=== PATIENT | female | born 1965 | race Caucasian/White ===

== ENCOUNTER 2016-06-11 18:01 | Emergency (ER) | payer BC, OTHER ==
[~2016-06-11] VITALS: Ht 162.6 cm; Wt 71.5 kg
[~2016-06-11 18:01] MED LIST: CIPR-255 PO; CITA40TA12 PO; FEXO1TAB49 PO; FLUT0.15 NAE
[2016-06-11 18:30] VITALS: TEMP 36.8; Ht 162.6 cm; Wt 71.5 kg
[2016-06-11] MEDS ORDERED: SODIUM CHLORIDE 0.9% 1000ML 1,000 ML IV STA ×2 (19:11)
[2016-06-11] MEDS ORDERED: KETOROLAC TROMETHAMINE 30 MG/ML VIAL IV STA (19:11)
[2016-06-11] MEDS ORDERED: ONDANSETRON INJ 2 MG/ML 2 ML VIAL IV STA (19:11)
[2016-06-11] MEDS ORDERED: MoRPHine SULFATE 4 MG/ML 1 ML CARP\\VIAL IV STA (19:11)
[2016-06-11 19:26] LABS: BASO % 0.2 %; BASO ABS # 0.03 K/uL (0-0.2); COMPLETE YES; HEMATOCRIT 43.6 % (37-47); IG% 0.2 %; LYMPH % 15.9 %; LYMPH ABS # 2.11 K/uL (1.2-3.4); MEAN CELL VOLUME 94.8 fL (80-100); MEAN CORPUSCULAR HGB CONC 33.7 g/dl (32-36); MEAN PLATELET VOLUME 10.2 fL (7.4-10.4); NEUT % 74.7 %; PLATELET COUNT 338 K/uL (130-400); WHITE BLOOD COUNT 13.24 K/uL (4.8-10.8)
[2016-06-11 19:35] LABS: URINE APPEARANCE CLEAR (CLEAR); URINE BILIRUBIN NEG (NEG); URINE COLOR YELLOW; URINE NITRITE NEG (NEG); URINE PH 5.5 (4.5-7.5); URINE SPECIFIC GRAVITY 1.028 (1.000-1.030); UROBILINOGEN NEG (NEG)
[2016-06-11 19:37] LABS: MANUAL MICROSCOPIC REQUIRED? NO; REVIEW REQ? NO
[2016-06-11 19:44] LABS: BUN/CREATININE RATIO 17.7 (10-20); CALCIUM 8.5 mg/dl (8.5-10.1); CREATININE 0.88 mg/dl (0.60-1.20); POTASSIUM 4.2 mmol/L (3.5-5.1)
[2016-06-11 19:47] LABS: ALB/GLOB RATIO 1.1 (0.9-2)
--- NOTE | 2016-06-11 19:56 | DIAGNOSTIC IMAGING REPORT ---
CT SCAN OF THE ABDOMEN AND PELVIS WITHOUT CONTRAST CLINICAL HISTORY: Right flank pain COMPARISON STUDY: 12/10/2015 TECHNIQUE: CT scan of the abdomen and pelvis was performed from the lung bases to the proximal femurs. Images are reviewed in the axial, sagittal, and coronal planes. IV contrast was not administered for this examination. CT DOSE: 885.29 mGy.cm FINDINGS: Lower chest: The heart is normal in size and configuration, without pericardial effusion. The lung bases and pleural spaces are clear. Liver: There are stable right lobe hypodensities, likely are presenting cysts. Gallbladder: Unremarkable. Spleen: Normal in size and attenuation. Pancreas: Unremarkable. Adrenal glands: Unremarkable. Kidneys: There is a 3 mm upper pole right renal calculus. No left renal calculi are visualized. There is no hydronephrosis. No ureteral or bladder calculi are visualized. Bowel: There are mildly prominent fluid-filled upper abdominal small bowel loops. There are no transition zones indicate bowel obstruction. There is a small bowel feces sign which may indicate an element of stasis. There are no findings to indicate acute appendicitis. Evaluation the appendix is somewhat limited given the lack of intravenous and oral contrast. There is no acute diverticulitis. Peritoneum: There is a small amount of free pelvic fluid. No free air is visualized. Vasculature: The abdominal aorta is normal in course and caliber. Adenopathy: None. Pelvic viscera: There are bilateral ovarian cysts/follicles, similar to the prior study. Skeletal structures: No destructive osseous lesions are seen. IMPRESSION: 1. Right-sided nephrolithiasis. No ureteral or bladder calculi identified 2. No evidence of acute appendicitis. No evidence of acute diverticulitis 3. Small amount of free fluid in the pelvis, likely physiologic 4. Stable bilateral ovarian cysts/follicles 5. Mildly prominent fluid-filled left upper quadrant small bowel loops. There is no current evidence of a significant bowel obstruction. A mild enteritis cannot be excluded. Electronically signed by: Kieran Cavanaugh M.D. 06/11/2016 7:54 PM Dictated Date/Time: 06/11/2016 7:48 PM
--- NOTE | 2016-06-11 21:09 | EMERGENCY ROOM VISIT NOTE ---
History First contact with patient: 18:58 Chief Complaint: FLANK PAIN Stated Complaint: RIGHT SIDE PAIN History of Present Illness Patient is a 51-year-old white female with past medical history significant for kidney stones who presents to the emergency department for evaluation of right- sided flank pain over the last 2-3 days. She has pain in her right mid back that wraps around to the right lower quadrant into the right groin. It has been fairly constant, and has been slightly worsened over the last 2-3 days. She notes urinary frequency, but states that she is urinating smaller amounts. She denies dysuria or hematuria. She is slightly nauseous but has not vomited. She is had chills and felt warm but has not checked her temperature with a thermometer. She has known right-sided kidney stones or chronic CAT scan this summer when she was being evaluated for appendicitis. She probably did have follow-up with urology. She is status post tubal ligation and right groin hernia repair. She does not menstruate after an endometrial ablation. She denies any gynecologic history. She rates her pain a 6/10 presently. Review of Systems Review of systems as per HPI. All other systems reviewed were negative. 10 systems reviewed. Past Medical/Surgical History Medical Problems: (1) Abdominal pain (2) Allergic rhinitis (3) Anxiety (4) Asthma (5) Prescription refill (6) Right kidney stone (7) RLQ abdominal pain (8) UTI (urinary tract infection) Surgical Problems: (1) History of endometrial ablation (2) History of hernia repair (3) Tubal Ligation Status Electronic medical records are reviewed and summarized as above/below. See Problem List. Family History FH: diabetes mellitus FH: heart disease FH: hypertension FH: kidney disease Social History Smoking Status: Current Every Day Smoker Alcohol Use: none Drug Use: none Marital Status: single Housing Status: lives with family Occupation Status: employed Current/Historical Medications Scheduled Ciprofloxacin Hcl (Cipro), 500 MG PO BID Citalopram Hydrobromide (Celexa), 40 MG PO DAILY Scheduled PRN Fexofenadine Hcl (Aniyah Allergy), 180 MG PO DAILY PRN for Allergy Symptoms Fluticasone Propionate (Nasal) (Flonase Allergy Relief), 2 SPRAYS CE DAILY PRN for Nasal Congestion Allergies Coded Allergies: Homatropine (Unverified Adverse Reaction, Unknown, UPSET STOMACH, 12/10/15) Hydrocodone (Unverified Adverse Reaction, Unknown, UPSET STOMACH, 12/10/15) Uncoded Allergies: ANTICHOLINERGIC (Allergy, Unknown, UPSET STOMACH, 12/07/15) Physical Exam Vital Signs Date Time Temp Pulse Resp B/P Pulse Ox O2 Delivery O2 Flow Rate FiO2 06/11/16 21:38 67 20 118/59 100 06/11/16 21:01 56 20 119/70 98 Room Air 06/11/16 19:15 61 20 125/71 98 Room Air 06/11/16 18:30 36.8 65 21 117/82 98 Room Air Physical Exam CONSTITUTIONAL: Patient is an uncomfortable 51-year-old white female who is awake and alert and in no acute distress. EYES: Pupils equal, round, reactive to light and accommodation. EOMs intact without nystagmus. Sclera are anicteric. ENT: Tympanic membranes intact, with normal landmarks. External canals are clear. Oral and nasopharynx are clear. Mucous membranes are moist, no lesions , tongue and gums appear normal. NECK: No bruits auscultated. Supple without lymphadenopathy. No thyromegaly. No meningeal signs. Full active range of motion without discomfort. CARDIOVASCULAR: Regular rate and rhythm, with normal S1 and S2, no murmur or gallop or rub is heard. No carotid bruits auscultated. No JVD. Peripheral pulses easily palpable. RESPIRATORY: Breath sounds equal and clear to auscultation without wheezes, rales, or rhonchi heard. Full and equal chest expansion without accessory muscle use or retractions. ABDOMEN: Bowel sounds are present. Abdomen is soft, nondistended, nontender to palpation. She has a well-healed right inguinal surgical incision. Positive right CVA tenderness. INTEGUMENTARY: No lesions or rash, normal skin turgor. LYMPH: No lymphadenopathy. Medical Decision & Procedures ER Provider Diagnostic Interpretation: CT SCAN OF THE ABDOMEN AND PELVIS WITHOUT CONTRAST CLINICAL HISTORY: Right flank pain COMPARISON STUDY: 12/10/2015 TECHNIQUE: CT scan of the abdomen and pelvis was performed from the lung bases to the proximal femurs. Images are reviewed in the axial, sagittal, and coronal planes. IV contrast was not administered for this examination. CT DOSE: 885.29 mGy.cm FINDINGS: Lower chest: The heart is normal in size and configuration, without pericardial effusion. The lung bases and pleural spaces are clear. Liver: There are stable right lobe hypodensities, likely are presenting cysts. Gallbladder: Unremarkable. Spleen: Normal in size and attenuation. Pancreas: Unremarkable. Adrenal glands: Unremarkable. Kidneys: There is a 3 mm upper pole right renal calculus. No left renal calculi are visualized. There is no hydronephrosis. No ureteral or bladder calculi are visualized. Bowel: There are mildly prominent fluid-filled upper abdominal small bowel loops. There are no transition zones indicate bowel obstruction. There is a small bowel feces sign which may indicate an element of stasis. There are no findings to indicate acute appendicitis. Evaluation the appendix is somewhat limited given the lack of intravenous and oral contrast. There is no acute diverticulitis. Peritoneum: There is a small amount of free pelvic fluid. No free air is visualized. Vasculature: The abdominal aorta is normal in course and caliber. Adenopathy: None. Pelvic viscera: There are bilateral ovarian cysts/follicles, similar to the prior study. Skeletal structures: No destructive osseous lesions are seen. IMPRESSION: 1. Right-sided nephrolithiasis. No ureteral or bladder calculi identified 2. No evidence of acute appendicitis. No evidence of acute diverticulitis 3. Small amount of free fluid in the pelvis, likely physiologic 4. Stable bilateral ovarian cysts/follicles 5. Mildly prominent fluid-filled left upper quadrant small bowel loops. There is no current evidence of a significant bowel obstruction. A mild enteritis cannot be excluded. Laboratory Results 06/11/16 19:15 Red Blood Count 4.60, Mean Corpuscular Volume 94.8, Mean Corpuscular Hemoglobin 32.0, Mean Corpuscular Hemoglobin Concent 33.7, Mean Platelet Volume 10.2, Neutrophils (%) (Auto) 74.7, Lymphocytes (%) (Auto) 15.9, Monocytes (%) (Auto) 8.0, Eosinophils (%) (Auto) 1.0, Basophils (%) (Auto) 0.2, Neutrophils # (Auto) 9.88, Lymphocytes # (Auto) 2.11, Monocytes # (Auto) 1.06, Eosinophils # (Auto) 0.13, Basophils # (Auto) 0.03 06/11/16 19:15 Test 06/11/16 19:15 White Blood Count 13.24 K/uL (4.8-10.8) Red Blood Count 4.60 M/uL (4.2-5.4) Hemoglobin 14.7 g/dL (12.0-16.0) Hematocrit 43.6 % (37-47) Mean Corpuscular Volume 94.8 fL (80-100) Mean Corpuscular Hemoglobin 32.0 pg (25-34) Mean Corpuscular Hemoglobin Concent 33.7 g/dl (32-36) Platelet Count 338 K/uL (130-400) Mean Platelet Volume 10.2 fL (7.4-10.4) Neutrophils (%) (Auto) 74.7 % Lymphocytes (%) (Auto) 15.9 % Monocytes (%) (Auto) 8.0 % Eosinophils (%) (Auto) 1.0 % Basophils (%) (Auto) 0.2 % Neutrophils # (Auto) 9.88 K/uL (1.4-6.5) Lymphocytes # (Auto) 2.11 K/uL (1.2-3.4) Monocytes # (Auto) 1.06 K/uL (0.11-0.59) Eosinophils # (Auto) 0.13 K/uL (0-0.5) Basophils # (Auto) 0.03 K/uL (0-0.2) RDW Standard Deviation 43.3 fL (36.4-46.3) RDW Coefficient of Variation 12.5 % (11.5-14.5) Immature Granulocyte % (Auto) 0.2 % Immature Granulocyte # (Auto) 0.03 K/uL (0.00-0.02) Urine Color YELLOW Urine Appearance CLEAR (CLEAR) Urine pH 5.5 (4.5-7.5) Urine Specific [place]ushman 1.028 (1.000-1.030) Urine Protein NEG (NEG) Urine Glucose (UA) NEG (NEG) Urine Ketones NEG (NEG) Urine Occult Blood NEG (NEG) Urine Nitrite NEG (NEG) Urine Bilirubin NEG (NEG) Urine Urobilinogen NEG (NEG) Urine Leukocyte Esterase NEG (NEG) Anion Gap 8.0 mmol/L (3-11) Est Creatinine Clear Calc Drug Dose 75.0 ml/min Estimated GFR () 89.4 Estimated GFR (Non- 77.2 BUN/Creatinine Ratio 17.7 (10-20) Calcium Level 8.5 mg/dl (8.5-10.1) Total Bilirubin 0.1 mg/dl (0.2-1) Aspartate Amino Transf (AST/SGOT) 11 U/L (15-37) Alanine Aminotransferase (ALT/SGPT) 21 U/L (12-78) Alkaline Phosphatase 68 U/L (45-117) Total Protein 7.0 gm/dl (6.4-8.2) Albumin 3.6 gm/dl (3.4-5.0) Globulin 3.4 gm/dl (2.5-4.0) Albumin/Globulin Ratio 1.1 (0.9-2) Lipase 149 U/L (73-393) Medications Administered Medications (Trade) Dose Ordered Sig/Gustavo Route Start Time Stop Time Status Last Admin Dose Admin Sodium Chloride 1,000 ml @ 999 mls/hr Q1H1M STAT IV 06/11/16 19:11 06/11/16 20:11 DC 06/11/16 19:24 999 MLS/HR Sodium Chloride (Nss 1000ml) 1,000 ml @ 250 mls/hr Q4H STAT IV 06/11/16 19:11 06/11/16 22:13 DC 06/11/16 19:24 250 MLS/HR Ketorolac Tromethamine (Toradol Inj) 30 mg NOW STAT IV 06/11/16 19:11 06/11/16 19:14 DC 06/11/16 19:24 30 MG Ondansetron HCl (Zofran Inj) 4 mg NOW STAT IV 06/11/16 19:11 06/11/16 19:14 DC 06/11/16 19:25 4 MG Morphine Sulfate (MoRPHine SULFATE INJ) 4 mg NOW STAT IV 06/11/16 19:11 06/11/16 19:14 DC 06/11/16 19:25 4 MG Ondansetron HCl (ZOFRAN ODT 4MG Home Pack) 1 homepack UD ONCE PO 06/11/16 21:15 06/11/16 21:16 DC 06/11/16 21:31 1 HOMEPACK Oxycodone/ Acetaminophen (Percocet 5/ 325MG Home Pack) 1 homepack UD ONCE PO 06/11/16 21:15 06/11/16 21:16 DC 06/11/16 21:31 1 HOMEPACK ED Course Patient was seen and evaluated as above. Old records are reviewed. She has a CAT scan from last summer which showed a 3 mm intrarenal right calculus. IV access was obtained. She was hydrated with normal saline solutions, and medicated with Toradol 30 mg, Zofran 4 mg and morphine 4 mg IV. CBC, CMP, lipase, urinalysis were all performed. Given her known history of nephrolithiasis and right flank pain, CT scan of the abdomen and pelvis was ordered to evaluate her pain. Patient did have a slightly elevated white count at 13,200, this is nonspecific in nature. Electrolytes and renal functions are normal. Liver functions are not elevated. Lipase is not indicative of acute pancreatitis. Urinalysis completely clear without signs of infection. CT scan again demonstrated a stable 3 mm upper pole right renal calculus. No evidence for hydronephrosis or ureteral or bladder calculi. She did also have some mildly prominent fluid-filled upper abdominal small bowel loops. No transition zone to indicate bowel obstruction there is no evidence for acute appendicitis. No acute diverticulitis. The patient and her were made aware of the results of her CT scan. She has nephrolithiasis, but no evidence for ureteral calculus or hydronephrosis she has had some nausea and loose stools, and has some bowel findings consistent with a possible enteritis. Differential diagnoses entertained included UTI, pyelonephritis, renal colic, appendicitis, biliary colic, acute cholecystitis, ascending cholangitis, pancreatitis, GERD, gastritis, musculoskeletal, among others. The patient reported good relief of her pain with the IV medications. Supportive care measures were discussed. The patient rated her pain a 1/10 at discharge. Medical Decision See ED Course. Impression Primary Impression: Right flank pain Departure Information Referrals Garfield Silverman M.D. (PCP) Patient Instructions My [facility] Additional Instructions DO NOT drive, drink alcohol, operate machinery, or perform dangerous activities today. You were given medications in the ER that can affect your ability to safely function or operate a vehicle. Percocet 5/325 mg: Take 1-2 pills every four hours as needed for breakthrough pain. Avoid alcohol, operating machinery or dangerous equipment, working on ladders or roofs, DRIVING, making important decisions, or situations where being under the influence may be dangerous. It is recommended to use an over- the-counter stool softener such as Colace, 100mg twice daily while taking this medication to avoid constipation. Ibuprofen(Motrin, Advil) may be used for fever or pain. Use 600mg every six hours as needed. Take with food. Avoid using more than 2400mg in a 24 hour period. Do not use 2400mg per day for more than three consecutive days without physician direction. Prolonged inappropriate use can lead to stomach upset or ulcers. This is available over the counter and typically comes in 200mg tablets. (AND/OR) Acetaminophen(Tylenol) may be used for fever or pain. Use 1000mg every eight hours as needed. Avoid using more than 3000mg in a 24 hour period. This is available over the counter. Zofran(odansetron) tablets 4mg: Take one and allow it to dissolve in your mouth every four hours as needed for nausea or vomiting. Read all the package inserts or medication information paperwork provided. If you have any questions or concerns call your primary provider, pharmacist or the ER for assistance. Rest and drink plenty of fluids as tolerated. Slow sips of water or sports drinks are recommended instead of large amounts all at once. Continue current medications. Once your stomach is settled start with a clear liquid diet (jello, soup broth, etc.) and then advance as tolerated. You should avoid full, heavy meals for about 24 hrs from the time your symptoms resolved. Return to the ER immediately for worsening or persistent abdominal pain, vomiting, fevers, chest pains, difficulty breathing, black or bloody stools, worsening of your condition, or as needed. Follow up with your primary physician in 1-2 days for a recheck of your current condition.
[2016-06-11] MEDS ORDERED: PERCOCET HOME PACK PO ONE (21:15)
[2016-06-11] MEDS ORDERED: ONDANSETRON HOME PACK 4MG OD TAB PO ONE (21:15)
[2016-06-11 21:38] VITALS: BP 118/59; PULSE 67; O2SAT 100
== END 2016-06-11 21:39 | disposition home or self-care (01) ==
LOC: C.EDB 18:02 → C.EDC 21:39
DX: R10.30 Lower abdominal pain, unspecified (principal); Z98.51 Tubal ligation status; N20.0 Calculus of kidney; F41.9 Anxiety disorder, unspecified; J45.909 Unspecified asthma, uncomplicated; Z87.440 Personal history of urinary (tract) infections; Z83.3 Family history of diabetes mellitus; Z82.49 Family history of ischemic heart disease and other diseases of the circulatory system; F17.210 Nicotine dependence, cigarettes, uncomplicated; Z79.899 Other long term (current) drug therapy

== ENCOUNTER 2016-07-19 18:29 | Emergency (ER) | payer OTHER ==
[~2016-07-19] VITALS: Ht 162.6 cm; Wt 72.9 kg
[2016-07-19 18:33] VITALS: TEMP 36.9; Ht 162.6 cm; Wt 72.9 kg
[2016-07-19] MEDS ORDERED: ONDANSETRON INJ 2 MG/ML 2 ML VIAL IV STA (18:50)
[2016-07-19] MEDS ORDERED: SODIUM CHLORIDE 0.9% 1000ML 1,000 ML IV STA (18:50)
[2016-07-19] MEDS ORDERED: KETOROLAC TROMETHAMINE 30 MG/ML VIAL IV STA (19:16)
[2016-07-19 19:22] LABS: BASO % 0.2 %; BASO ABS # 0.02 K/uL (0-0.2); COMPLETE YES; EOS % 1.6 %; HEMATOCRIT 39.6 % (37-47); IG% 0.3 %; LYMPH % 26.3 %; MEAN CELL VOLUME 93.2 fL (80-100); MEAN CORPUSCULAR HEMOGLOBIN 31.5 pg (25-34); MEAN CORPUSCULAR HGB CONC 33.8 g/dl (32-36); MEAN PLATELET VOLUME 9.5 fL (7.4-10.4); MONO % 7.9 %; NEUT % 63.7 %; PLATELET COUNT 390 K/uL (130-400); RED BLOOD COUNT 4.25 M/uL (4.2-5.4); WHITE BLOOD COUNT 10.64 K/uL (4.8-10.8)
[2016-07-19 19:29] LABS: URINE APPEARANCE CLOUDY (CLEAR); URINE BILIRUBIN NEG (NEG); URINE COLOR YELLOW; URINE EPITHELIAL CELL AUTO >30 /lpf (0-5); URINE NITRITE NEG (NEG); URINE SPECIFIC GRAVITY 1.022 (1.000-1.030); UROBILINOGEN NEG (NEG)
[2016-07-19 19:30] LABS: MANUAL MICROSCOPIC REQUIRED? NO; REVIEW REQ? YES
[2016-07-19 19:52] LABS: ALKALINE PHOSPHATASE 69 U/L (45-117); ALT/SGPT 23 U/L (12-78); BLOOD UREA NITROGEN 13 mg/dl (7-18); BUN/CREATININE RATIO 15.9 (10-20); CALCIUM 8.3 mg/dl (8.5-10.1); CARBON DIOXIDE 28 mmol/L (21-32); CHLORIDE 104 mmol/L (98-107); CREATININE 0.81 mg/dl (0.60-1.20); GLUCOSE 63 mg/dl (70-99); SODIUM 141 mmol/L (136-145)
--- NOTE | 2016-07-19 19:55 | DIAGNOSTIC IMAGING REPORT ---
ABDOMEN 2VIEW W/PA CHEST RTN CLINICAL HISTORY: Right-sided abdominal pain. Nausea. Bloating. COMPARISON STUDY: CT scan performed June 11, 2016 FINDINGS: Erect chest reveals no free air. There is no focal pulmonary consolidation. Erect and supine views the abdomen reveal no abnormally dilated loops of large or small bowel. There are no transition zones indicate bowel obstruction. There is scattered stool throughout the colon. There is an equivocal 2 mm upper pole right renal calculus. IMPRESSION: 1. No evidence of bowel obstruction. No evidence of free air 2. Equivocal 2 mm upper pole right renal calculus Electronically signed by: Kieran Cavanaugh M.D. 07/19/2016 7:54 PM Dictated Date/Time: 07/19/2016 7:52 PM
[2016-07-19 20:15] VITALS: BP 114/65; PULSE 67; O2SAT 99
[2016-07-19] MEDS ORDERED: PHENERGAN 25MG HOMEPACK PO ONE (20:15)
--- NOTE | 2016-07-19 20:24 | EMERGENCY ROOM VISIT NOTE ---
History Report prepared by Cody: Marbella Jones Under the Supervision of: Dr. Juan Carlos Jo M.D. First contact with patient: 18:37 Chief Complaint: FLANK PAIN Stated Complaint: RIGHT FLANK PAIN, NAUSEA History of Present Illness The patient is a 51 year old female who presents to the Emergency Room with complaints of worsening right sided flank pain for the past 18 months. She rates her pain as a 6/10 and describes it as "burning" in nature. Eating seems to worsen her discomfort, but the pain is constant whether she is eating or not. She has tried watching what she eats, but nothing seems to offer improvement. She has undergone HIDA scans in [place] which were normal and CT scans here locally. She still has her appendix and gallbladder. Her pain has worsened in the last 1 week, prompting her visit to the ED this evening. She admits to recent mild loose diarrhea. Her last bowel movement was earlier today. She also complains of nausea today, but states she has not vomited. She denies any urinary symptoms. She denies any rectal bleeding or black stools. The patient has never seen a [employer] before. Source of History: patient Onset: 18 months [employer] Position: back (right sided flank) Symptom Intensity: 6/10 Quality: burning Timing: worsening Modifying Factors (Worsening): eating Associated Symptoms: + diarrhea, + nausea, No urinary symptoms, No vomiting Review of Systems See HPI for pertinent positives & negatives. A total of 10 systems reviewed and were otherwise negative. Past Medical & Surgical Medical Problems: (1) Abdominal pain (2) Allergic rhinitis (3) Anxiety (4) Asthma (5) Prescription refill (6) Right kidney stone (7) RLQ abdominal pain (8) UTI (urinary tract infection) Surgical Problems: (1) History of endometrial ablation (2) History of hernia repair (3) Tubal Ligation Status Family History FH: diabetes mellitus FH: heart disease FH: hypertension FH: kidney disease Social History Smoking Status: Current Every Day Smoker Alcohol Use: none Drug Use: none Marital Status: Housing Status: lives with family Occupation Status: employed Current/Historical Medications Scheduled Citalopram Hydrobromide (Celexa), 40 MG PO DAILY Scheduled PRN Fexofenadine Hcl (Aniyah Allergy), 180 MG PO DAILY PRN for Allergy Symptoms Fluticasone Propionate (Nasal) (Flonase Allergy Relief), 2 SPRAYS CE DAILY PRN for Nasal Congestion Allergies Coded Allergies: Homatropine (Verified Adverse Reaction, Unknown, UPSET STOMACH, 07/19/16) Hydrocodone (Verified Adverse Reaction, Unknown, UPSET STOMACH, 07/19/16) Uncoded Allergies: ANTICHOLINERGIC (Allergy, Unknown, UPSET STOMACH, 12/07/15) Physical Exam Vital Signs Date Time Temp Pulse Resp B/P Pulse Ox O2 Delivery O2 Flow Rate FiO2 07/19/16 20:15 67 18 114/65 99 07/19/16 18:33 36.9 83 18 116/71 100 Room Air Physical Exam Constitutional: Vital signs reviewed. Eyes: Pupils are equal round reactive to light. Conjunctiva are noninjected. ENT: Pharynx is clear without erythema or exudate. Mucous membranes are moist. Neck supple without meningeal signs. Respiratory: Clear to auscultation bilaterally. Breath sounds are equal bilaterally. Cardiovascular: Regular rate and rhythm. No rubs or gallops. GI: Soft, nondistended, right upper mid abdominal tenderness, no guarding. Bowel sounds are present. Musculoskeletal: No peripheral edema. No lower extremity tenderness. No CVA tenderness. Integumentary: No cyanosis. Neurological: The patient is awake and alert. No focal deficits. Psychiatric: Normal affect. Medical Decision & Procedures ER Provider Diagnostic Interpretation: This X-Ray was reviewed and interpreted by myself and the radiologist. ABDOMEN 2VIEW W/PA CHEST RTN CLINICAL HISTORY: Right-sided abdominal pain. Nausea. Bloating. COMPARISON STUDY: CT scan performed June 11, 2016 FINDINGS: Erect chest reveals no free air. There is no focal pulmonary consolidation. Erect and supine views the abdomen reveal no abnormally dilated loops of large or small bowel. There are no transition zones indicate bowel obstruction. There is scattered stool throughout the colon. There is an equivocal 2 mm upper pole right renal calculus. IMPRESSION: 1. No evidence of bowel obstruction. No evidence of free air 2. Equivocal 2 mm upper pole right renal calculus Electronically signed by: Kieran Cavanaugh M.D. 07/19/2016 7:54 PM Laboratory Results 07/19/16 19:00 Red Blood Count 4.25, Mean Corpuscular Volume 93.2, Mean Corpuscular Hemoglobin 31.5, Mean Corpuscular Hemoglobin Concent 33.8, Mean Platelet Volume 9.5, Neutrophils (%) (Auto) 63.7, Lymphocytes (%) (Auto) 26.3, Monocytes (%) (Auto) 7.9, Eosinophils (%) (Auto) 1.6, Basophils (%) (Auto) 0.2, Neutrophils # (Auto) 6.78, Lymphocytes # (Auto) 2.80, Monocytes # (Auto) 0.84, Eosinophils # (Auto) 0.17, Basophils # (Auto) 0.02 07/19/16 19:00 Test 07/19/16 00:00 07/19/16 19:00 Urine Color YELLOW Urine Appearance CLOUDY (CLEAR) Urine pH 5.0 (4.5-7.5) Urine Specific Lutz 1.022 (1.000-1.030) Urine Protein NEG (NEG) Urine Glucose (UA) NEG (NEG) Urine Ketones NEG (NEG) Urine Occult Blood NEG (NEG) Urine Nitrite NEG (NEG) Urine Bilirubin NEG (NEG) Urine Urobilinogen NEG (NEG) Urine Leukocyte Esterase NEG (NEG) Urine WBC (Auto) 1-5 /hpf (0-5) Urine RBC (Auto) 0-4 /hpf (0-4) Urine Hyaline Casts (Auto) 1-5 /lpf (0-5) Urine Epithelial Cells (Auto) >30 /lpf (0-5) Urine Bacteria (Auto) NEG (NEG) Urine Crystals CALCIUM OXALATE (NONE Urine Test NEG (NEG) White Blood Count 10.64 K/uL (4.8-10.8) Red Blood Count 4.25 M/uL (4.2-5.4) Hemoglobin 13.4 g/dL (12.0-16.0) Hematocrit 39.6 % (37-47) Mean Corpuscular Volume 93.2 fL (80-100) Mean Corpuscular Hemoglobin 31.5 pg (25-34) Mean Corpuscular Hemoglobin Concent 33.8 g/dl (32-36) Platelet Count 390 K/uL (130-400) Mean Platelet Volume 9.5 fL (7.4-10.4) Neutrophils (%) (Auto) 63.7 % Lymphocytes (%) (Auto) 26.3 % Monocytes (%) (Auto) 7.9 % Eosinophils (%) (Auto) 1.6 % Basophils (%) (Auto) 0.2 % Neutrophils # (Auto) 6.78 K/uL (1.4-6.5) Lymphocytes # (Auto) 2.80 K/uL (1.2-3.4) Monocytes # (Auto) 0.84 K/uL (0.11-0.59) Eosinophils # (Auto) 0.17 K/uL (0-0.5) Basophils # (Auto) 0.02 K/uL (0-0.2) RDW Standard Deviation 42.7 fL (36.4-46.3) RDW Coefficient of Variation 12.6 % (11.5-14.5) Immature Granulocyte % (Auto) 0.3 % Immature Granulocyte # (Auto) 0.03 K/uL (0.00-0.02) Anion Gap 9.0 mmol/L (3-11) Est Creatinine Clear Calc Drug Dose 82.2 ml/min Estimated GFR () 98.8 Estimated GFR (Non- 85.3 BUN/Creatinine Ratio 15.9 (10-20) Calcium Level 8.3 mg/dl (8.5-10.1) Total Bilirubin 0.2 mg/dl (0.2-1) Direct Bilirubin mg/dl (0-0.2) Aspartate Amino Transf (AST/SGOT) U/L (15-37) Alanine Aminotransferase (ALT/SGPT) 23 U/L (12-78) Alkaline Phosphatase 69 U/L (45-117) Total Protein 6.1 gm/dl (6.4-8.2) Albumin 3.0 gm/dl (3.4-5.0) Lipase 110 U/L (73-393) Laboratory results as reviewed by me. Medications Administered Medications (Trade) Dose Ordered Sig/Gustavo Route Start Time Stop Time Status Last Admin Dose Admin Ondansetron HCl 4 mg 4 mg NOW STAT IV 07/19/16 18:50 07/19/16 18:53 DC 07/19/16 19:19 4 MG Sodium Chloride (Nss 1000ml) 1,000 ml @ 999 mls/hr Q1H1M STAT IV 07/19/16 18:50 07/19/16 19:50 DC 07/19/16 19:20 999 MLS/HR Ketorolac Tromethamine (Toradol Inj) 10 mg NOW STAT IV 07/19/16 19:16 07/19/16 19:17 DC 07/19/16 19:24 10 MG Promethazine HCl (Phenergan 25MG Home Pack) 1 homepack UD ONCE PO 07/19/16 20:15 07/19/16 20:16 DC 07/19/16 20:15 1 HOMEPACK ED Course 184: The patient was evaluated in room B2. A complete history and physical exam was performed. 1849: NSS 1000 ml @ 999 mls/hr IV, Zofran 4 mg IV. 1915: Toradol 10 mg IV. 1956: I reevaluated the patient. I discussed her test results. She will follow up with Gastroenterology. She declined a re-stick for blood work. I discussed her discharge instructions and she verbalized complete understanding and agreement. Medical Decision This is a 51-year-old female presents with ongoing abdominal pain for the past 18 months. Differential diagnosis includes irritable bowel syndrome, pancreatitis, enteritis, food intolerance, cholelithiasis, kidney stone. I did perform a limited focused review of portions of the patient's old chart on the electronic medical record. The patient was here on June 11, 2016 for right sided flank pain. She had a CT of abdomen/pelvis, which showed a right sided kidney stone without any ureteral stones. There was no sign of appendicitis seen. Her urine did not show any blood and her blood work was unremarkable except for a WBC of 13. She was treated with Toradol and Morphine. I did evaluate the patient as noted above. The patient is presenting with right -sided abdominal pain. It has been going on for 18 months. She has had multiple studies for this pain including HIDA scans which were all negative. She had multiple CT scans, the most recent of which was last month. That CAT scan showed nephrolithiasis but no acute process. Her gallbladder was noted as unremarkable. She is presenting with the same pain she has had for 18 months. She has felt more over the past week. IV access was established. I did order and personally review the patient's urinalysis as described above. She has calcium oxalate crystals but no signs of infection. I did order and review the patient's blood work as noted in the electronic medical record. Her white blood cell count is 10. LFTs are unremarkable. She did have some hemolysis but she did not want to have repeat labs drawn. I did feel this was fine. I did order an x-ray of the abdomen and chest I did review the images myself as well as the radiology report as described above. There is no evidence of obstruction. I did treat the patient with Toradol, Zofran and normal saline IV. I did discuss the test results with the patient in detail. She was advised follow with gastroenterology. She was discharged in good condition and given return instructions as outlined below. Impression Primary Impression: Right sided abdominal pain Scribe Attestation The scribe's documentation has been prepared under my direct and personally reviewed by me in its entirety. I confirm that the note above accurately reflects all work, treatment, procedures, and medical decision making performed by me. Departure Information Dispostion Home / Self-Care Referrals Garfield Silverman M.D. (PCP) Patient Instructions ED Abd Pain Unkn Cause Fem, My [facility] Additional Instructions You have been examined and treated today on an emergency basis only. This is not a substitute for, or an effort to provide, complete comprehensive medical care. It is impossible to recognize and treat all injuries or illnesses in a single emergency department visit. It is therefore important that you follow up closely with your physician and Dr. Estes of gastroenterology. Call as soon as possible for an appointment. Return for worsening symptoms or if you develop fever, vomiting, black or bloody stools or any other concerning symptoms.
== END 2016-07-19 20:16 | disposition home or self-care (01) ==
LOC: C.EDB 18:31
DX: R10.9 Unspecified abdominal pain (principal); J45.909 Unspecified asthma, uncomplicated; F17.200 Nicotine dependence, unspecified, uncomplicated; Z87.440 Personal history of urinary (tract) infections; Z98.51 Tubal ligation status; Z98.890 Other specified postprocedural states; Z83.3 Family history of diabetes mellitus; Z82.49 Family history of ischemic heart disease and other diseases of the circulatory system

== ENCOUNTER 2017-04-01 17:49 | Emergency (ER) | payer OTHER ==
[~2017-04-01] VITALS: Ht 162.6 cm; Wt 75.5 kg
[~2017-04-01 17:49] MED LIST changes: -CIPR-255 PO
[2017-04-01 17:58] VITALS: TEMP 36.8; Ht 162.6 cm; Wt 75.5 kg
[2017-04-01] MEDS ORDERED: KETOROLAC TROMETHAMINE 30 MG/ML VIAL IV STA (18:18)
[2017-04-01] MEDS ORDERED: ONDANSETRON INJ 2 MG/ML 2 ML VIAL IV STA (18:18)
[2017-04-01] MEDS ORDERED: SODIUM CHLORIDE 0.9% 1000ML 1,000 ML IV ONE (18:30)
[2017-04-01] MEDS ORDERED: AMPH20TA2 PO (18:34)
[2017-04-01] MEDS ORDERED: CHOL1000 PO (18:34)
[2017-04-01] MEDS ORDERED: IBUP-103 PO (18:34)
[2017-04-01 19:01] LABS: URINE APPEARANCE CLOUDY (CLEAR); URINE BILIRUBIN NEG (NEG); URINE COLOR YELLOW; URINE EPITHELIAL CELL AUTO >30 /lpf (0-5); URINE NITRITE NEG (NEG); URINE SPECIFIC GRAVITY 1.027 (1.000-1.030); UROBILINOGEN NEG (NEG)
[2017-04-01 19:06] LABS: MANUAL MICROSCOPIC REQUIRED? NO; REVIEW REQ? YES
[2017-04-01 19:10] LABS: BASO % 0.3 %; BASO ABS # 0.03 K/uL (0-0.2); COMPLETE YES; IG% 0.3 %; LYMPH ABS # 2.87 K/uL (1.2-3.4); MEAN CELL VOLUME 95.7 fL (80-100); MEAN CORPUSCULAR HEMOGLOBIN 31.7 pg (25-34); MEAN CORPUSCULAR HGB CONC 33.1 g/dl (32-36); MEAN PLATELET VOLUME 9.8 fL (7.4-10.4); MONO % 7.6 %; NEUT % 64.8 %; PLATELET COUNT 351 K/uL (130-400); RED BLOOD COUNT 4.39 M/uL (4.2-5.4); WHITE BLOOD COUNT 11.47 K/uL (4.8-10.8)
[2017-04-01 19:21] LABS: ZZUR CULT IF INDIC CLEAN CATCH YES
--- NOTE | 2017-04-01 19:22 | DIAGNOSTIC IMAGING REPORT ---
CT SCAN OF THE ABDOMEN AND PELVIS WITHOUT IV CONTRAST CLINICAL HISTORY: Right lower quadrant abdominal pain. COMPARISON STUDY: Abdominal CT dated 06/11/16. TECHNIQUE: CT scan of the abdomen and pelvis is performed from the lung bases to the proximal femora. Images are reviewed in the axial, sagittal, and coronal planes. IV contrast was not administered for this examination as per the referring clinician. A dose lowering technique was utilized adhering to the principles of ALARA. CT DOSE: 375.00 mGy.cm FINDINGS: Lung bases: The heart is normal in size and without pericardial effusion. The lung bases are clear. There is a small hiatal hernia. Liver: The unenhanced liver is normal in size, contour, and attenuation. There is no intrahepatic biliary ductal dilatation. 2 cysts are identified in the right hepatic lobe and measure up to 1.4 cm. Gallbladder: Contracted. Spleen: Normal in size and attenuation. Pancreas: The unenhanced pancreas is grossly unremarkable. Adrenal glands: Unremarkable. Kidneys: The unenhanced kidneys are normal in size and without hydronephrosis. A 6 mm nonobstructing calculus is seen in the right upper pole. No left renal calculi are identified. There is no evidence of contour deforming renal mass lesion. Abdominal vasculature: The abdominal aorta is normal in course and caliber. Bowel: The small bowel and colon are normal in course and caliber. The appendix is well-visualized and normal. Peritoneum: There is no intraperitoneal free air or abdominal ascites. There is a fat-containing umbilical hernia. Lymphadenopathy: None. Pelvic viscera: The bladder, uterus, and adnexa are normal as visualized. A 2.9 cm dominant follicle is seen in the left ovary. Trace free fluid is seen in the cul-de-sac. Skeletal structures: There is mild lumbosacral spondylosis and scoliosis. No lytic or blastic lesions are seen. IMPRESSION: 1. There are no acute infectious or inflammatory findings in the abdomen or pelvis. 2. There is trace and likely physiologic free fluid in the cul-de-sac. 3. Nonobstructing right renal calculus. Electronically signed by: Fitz Banks M.D. 04/01/2017 7:21 PM Dictated Date/Time: 04/01/2017 7:15 PM
[2017-04-01 19:26] LABS: ALKALINE PHOSPHATASE 77 U/L (45-117); ALT/SGPT 22 U/L (12-78); BLOOD UREA NITROGEN 13 mg/dl (7-18); BUN/CREATININE RATIO 18.8 (10-20); CALCIUM 8.5 mg/dl (8.5-10.1); CARBON DIOXIDE 27 mmol/L (21-32); CHLORIDE 105 mmol/L (98-107); GLUCOSE 80 mg/dl (70-99); SODIUM 138 mmol/L (136-145)
[2017-04-01 19:31] LABS: POTASSIUM 4.2 mmol/L (3.5-5.1)
[2017-04-01 19:35] LABS: AST/SGOT 11 U/L (15-37)
[2017-04-01] MEDS ORDERED: SULF800T23 PO (20:38)
[2017-04-01] MEDS ORDERED: OXYCODONE IR HOME PACK PO ONE (20:45)
[2017-04-01] MEDS ORDERED: SEPTRA DS HOME PACK 1 EA VIAL PO ONE (20:45)
[2017-04-01 20:50] VITALS: BP 122/59; PULSE 61; O2SAT 97
--- NOTE | 2017-04-02 19:31 | EMERGENCY ROOM VISIT NOTE ---
History First contact with patient: 18:06 Chief Complaint: FLANK PAIN Stated Complaint: RIGHT FLANK,BACK PAIN History of Present Illness The patient is a 51 year old female who presents to the Emergency Room with complaints of right-sided flank pain radiating into her lower pelvis. This is been going on for the past 2 days. The patient reports an old history of intrarenal kidney stones, and is concerned that she may be passing one. She has not had fever or chills. She has not had relief with thpi-bgy-ylkyvhn analgesics. No nausea or vomiting. The pain is dull and persistent, currently rated a 6/10. Review of Systems More than 10 systems were reviewed and otherwise negative with the exception of history of present illness. Past Medical/Surgical History Medical Problems: (1) Abdominal pain (2) Allergic rhinitis (3) Anxiety (4) Asthma (5) Prescription refill (6) Right kidney stone (7) RLQ abdominal pain (8) UTI (urinary tract infection) Surgical Problems: (1) History of endometrial ablation (2) History of hernia repair (3) Tubal Ligation Status Family History FH: diabetes mellitus FH: heart disease FH: hypertension FH: kidney disease Social History Smoking Status: Current Every Day Smoker Alcohol Use: none Drug Use: none Marital Status: Housing Status: lives with family Occupation Status: employed Current/Historical Medications Scheduled Amphetamine-Dextroamphetamine 20MG (Adderall 20MG), 20 MG PO BID Cholecalciferol (Vitamin D3), 2 TAB PO DAILY Citalopram Hydrobromide (Celexa), 40 MG PO DAILY Sulfa/Trimethoprim (Bactrim Ds 800MG/160MG), 1 TAB PO BID Scheduled PRN Fexofenadine Hcl (Aniyah Allergy), 180 MG PO DAILY PRN for Allergy Symptoms Fluticasone Propionate (Nasal) (Flonase Allergy Relief), 2 SPRAYS CE DAILY PRN for Nasal Congestion Ibuprofen Tab (Advil), 400-600 MG PO Q6H PRN for Pain Physical Exam Vital Signs Date Time Temp Pulse Resp B/P (MAP) Pulse Ox O2 Delivery O2 Flow Rate FiO2 04/01/17 20:50 61 19 122/59 97 04/01/17 19:32 61 18 124/79 99 Room Air 04/01/17 17:58 36.8 76 18 130/70 96 Room Air Physical Exam VITALS: Vitals are noted on the nurse's note and reviewed by myself. Vital signs stable. GENERAL: Well-developed, well-nourished, white female, who is in no acute distress and resting comfortably. Patient is cooperative with the examination. NECK: Supple without nuchal rigidity. No lymphadenopathy. No thyromegaly. Cervical spine is nontender. HEART: Regular rate and rhythm without murmurs gallops or rubs. LUNGS: Clear to auscultation bilaterally without wheezes, rales or rhonchi. No retractions or accessory muscle use. ABDOMEN: Positive normal bowel sounds x 4. Soft, nontender, without masses or organomegaly. No guarding or rebound tenderness. No CVA tenderness.. MUSCULOSKELETAL: No muscle atrophy, erythema, or edema noted. Full range of motion without joint tenderness in all extremities. Medical Decision & Procedures ER Provider Diagnostic Interpretation: CT SCAN OF THE ABDOMEN AND PELVIS WITHOUT IV CONTRAST CLINICAL HISTORY: Right lower quadrant abdominal pain. COMPARISON STUDY: Abdominal CT dated 06/11/16. TECHNIQUE: CT scan of the abdomen and pelvis is performed from the lung bases to the proximal femora. Images are reviewed in the axial, sagittal, and coronal planes. IV contrast was not administered for this examination as per the referring clinician. A dose lowering technique was utilized adhering to the principles of ALARA. CT DOSE: 375.00 mGy.cm FINDINGS: Lung bases: The heart is normal in size and without pericardial effusion. The lung bases are clear. There is a small hiatal hernia. Liver: The unenhanced liver is normal in size, contour, and attenuation. There is no intrahepatic biliary ductal dilatation. 2 cysts are identified in the right hepatic lobe and measure up to 1.4 cm. Gallbladder: Contracted. Spleen: Normal in size and attenuation. Pancreas: The unenhanced pancreas is grossly unremarkable. Adrenal glands: Unremarkable. Kidneys: The unenhanced kidneys are normal in size and without hydronephrosis. A 6 mm nonobstructing calculus is seen in the right upper pole. No left renal calculi are identified. There is no evidence of contour deforming renal mass lesion. Abdominal vasculature: The abdominal aorta is normal in course and caliber. Bowel: The small bowel and colon are normal in course and caliber. The appendix is well-visualized and normal. Peritoneum: There is no intraperitoneal free air or abdominal ascites. There is a fat-containing umbilical hernia. Lymphadenopathy: None. Pelvic viscera: The bladder, uterus, and adnexa are normal as visualized. A 2.9 cm dominant follicle is seen in the left ovary. Trace free fluid is seen in the cul-de-sac. Skeletal structures: There is mild lumbosacral spondylosis and scoliosis. No lytic or blastic lesions are seen. IMPRESSION: 1. There are no acute infectious or inflammatory findings in the abdomen or pelvis. 2. There is trace and likely physiologic free fluid in the cul-de-sac. 3. Nonobstructing right renal calculus.s absolutely Laboratory Results 04/01/17 18:51 Red Blood Count 4.39, Mean Corpuscular Volume 95.7, Mean Corpuscular Hemoglobin 31.7, Mean Corpuscular Hemoglobin Concent 33.1, Mean Platelet Volume 9.8, Neutrophils (%) (Auto) 64.8, Lymphocytes (%) (Auto) 25.0, Monocytes (%) (Auto) 7.6, Eosinophils (%) (Auto) 2.0, Basophils (%) (Auto) 0.3, Neutrophils # (Auto) 7.44, Lymphocytes # (Auto) 2.87, Monocytes # (Auto) 0.87, Eosinophils # (Auto) 0.23, Basophils # (Auto) 0.03 04/01/17 18:51 Test 04/01/17 18:43 04/01/17 18:51 Urine Color YELLOW Urine Appearance CLOUDY (CLEAR) Urine pH 5.0 (4.5-7.5) Urine Specific Purchase 1.027 (1.000-1.030) Urine Protein NEG (NEG) Urine Glucose (UA) NEG (NEG) Urine Ketones NEG (NEG) Urine Occult Blood NEG (NEG) Urine Nitrite NEG (NEG) Urine Bilirubin NEG (NEG) Urine Urobilinogen NEG (NEG) Urine Leukocyte Esterase TRACE (NEG) Urine WBC (Auto) 1-5 /hpf (0-5) Urine RBC (Auto) 0-4 /hpf (0-4) Urine Hyaline Casts (Auto) 1-5 /lpf (0-5) Urine Epithelial Cells (Auto) >30 /lpf (0-5) Urine Bacteria (Auto) 1+ (NEG) Urine Crystals CALCIUM OXALATE (NONE White Blood Count 11.47 K/uL (4.8-10.8) Red Blood Count 4.39 M/uL (4.2-5.4) Hemoglobin 13.9 g/dL (12.0-16.0) Hematocrit 42.0 % (37-47) Mean Corpuscular Volume 95.7 fL (80-100) Mean Corpuscular Hemoglobin 31.7 pg (25-34) Mean Corpuscular Hemoglobin Concent 33.1 g/dl (32-36) Platelet Count 351 K/uL (130-400) Mean Platelet Volume 9.8 fL (7.4-10.4) Neutrophils (%) (Auto) 64.8 % Lymphocytes (%) (Auto) 25.0 % Monocytes (%) (Auto) 7.6 % Eosinophils (%) (Auto) 2.0 % Basophils (%) (Auto) 0.3 % Neutrophils # (Auto) 7.44 K/uL (1.4-6.5) Lymphocytes # (Auto) 2.87 K/uL (1.2-3.4) Monocytes # (Auto) 0.87 K/uL (0.11-0.59) Eosinophils # (Auto) 0.23 K/uL (0-0.5) Basophils # (Auto) 0.03 K/uL (0-0.2) RDW Standard Deviation 41.9 fL (36.4-46.3) RDW Coefficient of Variation 12.0 % (11.5-14.5) Immature Granulocyte % (Auto) 0.3 % Immature Granulocyte # (Auto) 0.03 K/uL (0.00-0.02) Anion Gap 6.0 mmol/L (3-11) Est Creatinine Clear Calc Drug Dose 96.7 ml/min Estimated GFR () 117.9 Estimated GFR (Non- 101.7 BUN/Creatinine Ratio 18.8 (10-20) Calcium Level 8.5 mg/dl (8.5-10.1) Total Bilirubin < 0.1 mg/dl (0.2-1) Aspartate Amino Transf (AST/SGOT) 11 U/L (15-37) Alanine Aminotransferase (ALT/SGPT) 22 U/L (12-78) Alkaline Phosphatase 77 U/L (45-117) Total Protein 6.4 gm/dl (6.4-8.2) Albumin 3.2 gm/dl (3.4-5.0) Globulin 3.2 gm/dl (2.5-4.0) Albumin/Globulin Ratio 1.0 (0.9-2) Lipase 96 U/L (73-393) Medications Administered Medications (Trade) Dose Ordered Sig/Gustavo Route Start Time Stop Time Status Last Admin Dose Admin Sodium Chloride 1,000 ml @ 999 mls/hr Q1H1M ONCE IV 04/01/17 18:30 04/01/17 19:30 DC 04/01/17 18:59 999 MLS/HR Ketorolac Tromethamine (Toradol Inj) 30 mg NOW STAT IV 04/01/17 18:18 04/01/17 18:20 DC 04/01/17 18:59 30 MG Ondansetron HCl (Zofran Inj) 4 mg NOW STAT IV 04/01/17 18:18 04/01/17 18:20 DC 04/01/17 18:58 4 MG Trimethoprim/ Sulfamethoxazole (Sulfameth/ Trimeth Ds 800/ 160MG Home Pack) 1 homepack UD ONCE PO 04/01/17 20:45 04/01/17 20:46 DC 04/01/17 20:48 1 HOMEPACK Oxycodone HCl (Roxicodone Immediate Rel 5MG Home Pack) 1 homepack UD ONCE PO 04/01/17 20:45 04/01/17 20:46 DC 04/01/17 20:48 1 HOMEPACK ED Course Physical exam and history were performed. Nursing notes, EMR, and Medication List were personally reviewed. Patient appears to have reports of right flank pain into her lower abdomen. The patient does not seem toxic on examination. Evidently she has a past history of kidney stones. IV access was established and labs were obtained. She was hydrated with normal saline. She was given IV Toradol for comfort. Because of her history and symptoms I did elect to perform CT scan. The patient's blood work is as above and was reviewed. She does not have a significantly elevated white blood cell count, gross anemia, bandemia, or significant electrolyte imbalance. Lipase and transaminases are nondiagnostic. Urine may be contaminated versus showing signs of early UTI. Her CT scan did not show significant finding such as kidney stone, appendicitis, or other infection. Overall the patient had improvement of her symptoms after the above interventions. Repeat abdominal examination does not show any worsening of symptoms or concern for a surgical abdomen. Based on the testing, the patient could have an early urinary tract infection, or possibly a passed stone. I will start her on a short course of antibiotics to help resolve any UTI symptoms. The patient will need to follow with her primary care physician in the next few days for recheck. She was otherwise invited back to the ER with any new, worsening, or concerning symptoms. The chart was completed utilizing [employer] Speech Voice Recognition Software. Grammatical errors, random word insertions, pronoun errors, and incomplete sentences are an occasional consequence of this system due to software limitations, ambient noise, and hardware issues. Any formal questions or concerns about the content, text, or information contained within the body of this dictation should be directly addressed to the provider for clarification. . Medical Decision Differential diagnosis: Etiologies such as renal colic, appendicitis, diverticulitis, mesenteric ischemia, aortic pathology, infections, inflammatory bowel disease, PUD, biliary pathology, UTI, as well as others were entertained. Impression Primary Impression: Lower abdominal pain Departure Information Dispostion Home / Self-Care Condition FAIR Prescriptions Sulfa/Trimethoprim (Bactrim Ds 800MG/160MG) Tab 1 TAB PO BID for 9 Days, #18 TAB Prov: Braden Ramos PA-C 04/01/17 Forms HOME CARE DOCUMENTATION FORM, IMPORTANT VISIT INFORMATION Patient Instructions My [facility] Additional Instructions You were seen and evaluated today on an emergency basis only. This is not a substitute for, or an effort to provide, complete comprehensive medical care. It is not possible to recognize and treat all injuries or illnesses in a single emergency department visit. For this reason it is recommended that you followup with your primary care physician with any ongoing or persistent symptoms. Oxycodone (OxyIR) 5mg (homepack): Take ONE pill every SIX hours for breakthrough pain. Avoid alcohol, operating machinery or dangerous equipment, working on ladders or roofs, DRIVING, or situations where being under the influence may be dangerous. It is recommended to use an heru-dwa-xeslyyg stool softener such as Colace, 100mg twice daily while taking this medication to avoid constipation. Trimethoprim-Sulfamethoxazole(Bactrim DS): Take one pill twice daily for 10 days for your skin infection. All antibiotics can cause diarrhea. If this occurs and you feel worse or it does not resolve in 1-2 days follow up with your doctor or return to the Emergency Department as this could be signs of serious underlying problems. Any medication can cause an allergic reaction, stop the pills immediately and return to the ER for rash, hives, breathing difficulties, or swelling. You are welcome to return to the emergency department anytime with new, worsening, or concerning symptoms.
== END 2017-04-01 20:50 | disposition home or self-care (01) ==
LOC: C.EDB 17:50 → C.EDC 20:50
DX: R10.30 Lower abdominal pain, unspecified (principal); J45.909 Unspecified asthma, uncomplicated; F41.9 Anxiety disorder, unspecified; Z87.442 Personal history of urinary calculi; Z87.440 Personal history of urinary (tract) infections; Z83.3 Family history of diabetes mellitus; Z82.49 Family history of ischemic heart disease and other diseases of the circulatory system; Z84.1 Family history of disorders of kidney and ureter; F17.210 Nicotine dependence, cigarettes, uncomplicated; Z79.899 Other long term (current) drug therapy

== ENCOUNTER → 2018-01-01 | Outpatient (CLI) | payer OTHER ==
[~2018-01-01] MED LIST changes: +AMPH20TA2 PO; +CHOLCAP5 PO; +CIPR-255 PO; -CITA40TA12 PO; +CITA40TA4 PO; +IBUP-103 PO; +OPTIRAY 320 IV PRN
--- NOTE | 2018-01-01 19:32 | DIAGNOSTIC IMAGING REPORT ---
ABDOMEN AND PELVIS CT WITH IV AND ORAL CONTRAST CT DOSE: 400.76 mGy.cm HISTORY: Acute right lower quadrant abdominal pain RLQ PAIN, APPENDIX DISEASE TECHNIQUE: Multiaxial CT images of the abdomen and pelvis were performed following the use of intravenous and oral contrast. A dose lowering technique was utilized adhering to the principles of ALARA. COMPARISON STUDY: CT abdomen and pelvis 11/17/2017. FINDINGS: 2 mm solid nodule of the left lower lobe, image 10 series 3 is likely benign. Minimal dependent subsegmental bibasilar atelectasis. No pneumatosis or pneumoperitoneum identified. Imaged inferior cardiac chambers are unremarkable. Multiple circumscribed hypodense lesions about the liver redemonstrated measuring up to 1.2 cm within the hepatic dome suggesting hepatic cysts. No intrahepatic biliary ductal dilation. Spleen, pancreas, gallbladder and adrenal glands appear unremarkable. 4 mm nonobstructing calculus about the superior pole right kidney is unchanged. No ureteral calculi or obstructive uropathy. Ureters and bladder are unremarkable. Uterus is within normal limits. Mild free pelvic fluid. Cystic lesion about the left adnexum redemonstrated, 3.1 x 2.5 cm. This has not significantly changed from comparison. Prominent vasculature about the adnexa redemonstrated. Aorta and IVC are within normal limits. No pathologically enlarged lymph nodes are identified. No bowel obstruction or focal bowel wall thickening identified. The appendix is contrast filled and appears noninflamed and nondilated within the abdominal right lower quadrant. No mesenteric inflammatory changes. The appendiceal tip is partially obscured. Soft tissues and bones appear unremarkable. Moderate intervertebral disc space narrowing at L4-L5. IMPRESSION: 1. No acute intra-abdominal or intrapelvic abnormality identified. 2. No bowel obstruction or focal bowel wall thickening. Normal appendix. 3. 4 mm nonobstructing calculus of the superior pole right kidney. 4. 3.1 cm cyst of the left ovary with mild free pelvic fluid. Electronically signed by: Kevin Babb M.D. 01/01/2018 7:31 PM Dictated Date/Time: 01/01/2018 7:22 PM
== END | disposition home or self-care (01) ==
LOC: C.CTS 16:24
PROVIDERS: ATTEND Physician Assistant
DX: R10.31 Right lower quadrant pain (principal); K38.9 Disease of appendix, unspecified; N20.0 Calculus of kidney; N83.202 Unspecified ovarian cyst, left side